=== PATIENT | female | born 1950 | race Caucasian/White ===

== ENCOUNTER → 2023-12-26 | Outpatient (CLI) | payer MEDICARE, BC, SELFPAY ==
[2023-12-26 10:02] LABS: OBS Card Lot # 22004; OBS Performed By LAB; OBS QC OK? Yes
[2023-12-26 13:46] LABS: OBS Developer Lot # 23003; Occult Blood, Stool Negative (Negative); Occult Blood, Stool #2 Negative (Negative); Occult Blood, Stool #3 Negative (Negative)
== END | disposition home or self-care (01) ==
LOC: SLDO 09:55
PROVIDERS: PCP Family Medicine; Referring Provider Family Medicine; Visit Provider Family Medicine
DX: Z12.11 Encounter for screening for malignant neoplasm of colon (principal)
CPT/HCPCS: 82270

== ENCOUNTER → 2024-01-23 | Outpatient (CLI) | payer MEDICARE, BC, SELFPAY ==
--- NOTE | 2024-01-23 08:30 | XR_ITS ---
Examination: Screening digital mammography, bilateral Computer aided detection 3-D breast Tomosynthesis, bilateral Date and time of exam: January 23, 2024 0817 hours Compared to mammograms dating to April 29, 2016 Indication: Screening Technique: Nonmagnified MLO, CC views of the breasts to been obtained, reconstructed from 3-D Tomosynthesis images. R2 computer aided detection program utilized for evaluation of suspicious masses and/or abnormal calcifications. 3-D Tomosynthesis images obtained. Findings: Scattered areas of fibroglandular density. Benign calcifications. 4 mm circumscribed nodule retroareolar region right breast Impression: BI-RADS Category 0: Incomplete: Need additional imaging evaluation 4 mm circumscribed nodule retroareolar region right breast, recommend follow-up spot tomographic views retroareolar region right breast right breast sonography to complete the workup
== END | disposition home or self-care (01) ==
LOC: CDIM 08:08
PROVIDERS: PCP Family Medicine; Referring Provider Family Medicine; Visit Provider Family Medicine
DX: Z12.31 Encounter for screening mammogram for malignant neoplasm of breast (principal); N63.41 Unspecified lump in right breast, subareolar; R92.8 Other abnormal and inconclusive findings on diagnostic imaging of breast
CPT/HCPCS: 77063; 77067

== ENCOUNTER → 2024-02-29 | Outpatient (CLI) | payer MEDICARE, BC, SELFPAY ==
--- NOTE | 2024-02-29 10:17 | XR_ITS ---
Examination: PA lateral chest 2 views TECHNIQUE: Upright PA lateral chest 2 views Exam date and time: February 29, 2024 1044 hours Comparison June 30, 2020 INDICATIONS: Shortness of breath beginning 2 months ago, diagnosis chronic hypertension FINDINGS: Mild prominence left ventricle Mild opacity at the right base No pulmonary edema Prominent osteopenia IMPRESSION: Suspicious for early right base pneumonia
== END | disposition home or self-care (01) ==
LOC: CDIM 10:12
PROVIDERS: PCP Internal Medicine; Referring Provider Internal Medicine; Visit Provider Internal Medicine
DX: R91.8 Other nonspecific abnormal finding of lung field (principal)
CPT/HCPCS: 71046

== ENCOUNTER → 2024-03-02 | Outpatient (CLI) | payer MEDICARE, BC, SELFPAY ==
--- NOTE | 2024-03-02 09:30 | XR_ITS ---
Examination: Breast ultrasound, unilateral, right Date and time of exam: March 02, 2024 0948 hours INDICATIONS: Mammogram January 23, 2024 4 mm nodule retroareolar region right breast Technique: Real-time celestin scale ultrasonographic imaging performed right breast including all 4 quadrants as well as nipple retroareolar and axillary region. Findings: Dilated ducts in the retroareolar region no solid nodules IMPRESSION: BI-RADS Category 2: Benign findings
--- NOTE | 2024-03-02 10:00 | XR_ITS ---
Examination: Diagnostic digital mammography, unilateral, right Computer aided detection 3-D breast Tomosynthesis, unilateral Date and time of exam: March 02, 2024 0955 hours INDICATIONS: Mammogram January 23, 2024 4 mm circumscribed nodule retroareolar region right breast Technique: Nonmagnified MLO, CC views of the right breast have been obtained, reconstructed from 3-D Tomosynthesis images. R2 computer aided detection program utilized for evaluation of suspicious masses and/or abnormal calcifications. 3-D Tomosynthesis images obtained. Findings: Scattered areas of fibroglandular density No suspicious mass is depicted Impression: BI-RADS category 2: Benign findings Return to yearly follow-up mammography
== END | disposition home or self-care (01) ==
PROVIDERS: PCP Family Medicine; Referring Provider Family Medicine; Visit Provider Family Medicine
DX: R92.321 Mammographic fibroglandular density, right breast (principal); R92.8 Other abnormal and inconclusive findings on diagnostic imaging of breast
CPT/HCPCS: 76641; 77061; 77065; G0279

== ENCOUNTER → 2024-05-09 | Outpatient (CLI) | payer MEDICARE, BC, SELFPAY ==
[2024-05-09 08:34] LABS: Basophils % (Auto) 1 % (0-2.5); Eosinophils # (Auto) 0.1 Thou/mm3 (0.0-0.5); Eosinophils % (Auto) 1 % (0-10); Hematocrit 37.6 % (36.0-46.0); Hemoglobin 12.6 g/dL (12.0-16.0); Immature Granulocytes % (Auto) 0 % (0-0); Immature Granulocytes Auto 0.02 Thou/mm3 (0.00-0.00); Lymphocytes # (Auto) 2.3 Thou/mm3 (1.0-4.8); Lymphocytes % (Auto) 30 % (10-50); Mean Corpuscular HGB Conc 33.5 g/dl (31.0-37.0); Mean Corpuscular Hemoglobin 32.2 pg (25.0-35.0); Mean Corpuscular Volume 96 fL (80-100); Monocytes # (Auto) 0.9 Thou/mm3 (0.0-0.8); Monocytes % (Auto) 11 % (0-12); Neutrophils # (Auto) 4.2 Thou/mm3 (1.8-7.7); Neutrophils % (Auto) 56 % (37-80); Nucleated Red Blood Cell % 0 /100 WBC (0); Platelet Count 170 Thou/mm3 (140-440); RDW Standard Deviation 43.9 fL (36.4-46.3); Red Blood Count 3.91 Miln/mm3 (4.00-5.20); White Blood Count 7.4 Thou/mm3 (3.6-11.0)
[2024-05-09 08:36] LABS: Glucose Estimated Average 126 mg/dL (80-131)
[2024-05-09 08:53] LABS: Alanine Aminotransferase 15 U/L (10-49); Albumin/Globulin Ratio 1.6 (1.2-2.2); Alkaline Phosphatase 84 U/L (46-116); Anion Gap 8 (7-16); Aspartate Amino Transferase 16 U/L (0-34); BUN/Creatinine Ratio 20 Ratio (12-20); Bilirubin,Total 0.2 mg/dL (0.3-1.2); Blood Urea Nitrogen 24 mg/dL (9-23); Calcium 9.2 mg/dL (8.3-10.6); Calcium (Corrected) 9.2 mg/dL (8.5-10.1); Carbon Dioxide 29.8 mMol/L (20.0-31.0); Cardiac Risk Estimate 4.9 RATIO (3.7-5.6); Chloride 102 mMol/L (98-107); Cholesterol 246 mg/dL (132-200); Creatinine (Component) 1.2 mg/dL (0.6-1.3); Globulin 2.5 gm/dL (2.3-3.5); Glucose 103 mg/dL (74-106); HDL Cholesterol 50 mg/dL (40-60); LDL Cholesterol,Calculated 150 mg/dL (0-130); Osmolality,Calculated 283 (275-295); Potassium 4.2 mMol/L (3.4-5.1); Sodium 140 mMol/L (136-145); Total Protein 6.5 gm/dL (5.7-8.2); Triglycerides 228 mg/dL (30-150); eGFR 48 See Note
[2024-05-09 08:54] LABS: Creatinine MALB Rnd Ur 105 mg/dL (30-125); Microalbumin Creat Ratio 5 mg/gCrea (<30); Microalbumin, Random Urine 5 mg/L (0-300)
== END | disposition home or self-care (01) ==
LOC: COPL 06:46
PROVIDERS: PCP Family Medicine; Referring Provider Student in an Organized Health Care Education/Training Program; Visit Provider Student in an Organized Health Care Education/Training Program
DX: E11.9 Type 2 diabetes mellitus without complications (principal); E78.00 Pure hypercholesterolemia, unspecified; I10 Essential (primary) hypertension
CPT/HCPCS: 36415; 80053; 80061; 82043; 82570; 83036; 85025

== ENCOUNTER → 2024-08-09 | Outpatient (CLI) | payer MEDICARE, BC, SELFPAY ==
[2024-08-09 09:09] LABS: Basophils # (Auto) 0.1 Thou/mm3 (0.0-0.2); Basophils % (Auto) 1 % (0-2.5); Eosinophils # (Auto) 0.1 Thou/mm3 (0.0-0.5); Eosinophils % (Auto) 1 % (0-10); Hematocrit 38.6 % (36.0-46.0); Immature Granulocytes % (Auto) 0 % (0-0); Immature Granulocytes Auto 0.02 Thou/mm3 (0.00-0.00); Lymphocytes # (Auto) 2.1 Thou/mm3 (1.0-4.8); Lymphocytes % (Auto) 30 % (10-50); Mean Corpuscular HGB Conc 33.7 g/dl (31.0-37.0); Mean Corpuscular Hemoglobin 32.4 pg (25.0-35.0); Mean Corpuscular Volume 96 fL (80-100); Monocytes # (Auto) 0.8 Thou/mm3 (0.0-0.8); Monocytes % (Auto) 12 % (0-12); Neutrophils # (Auto) 3.8 Thou/mm3 (1.8-7.7); Neutrophils % (Auto) 56 % (37-80); Nucleated Red Blood Cell % 0 /100 WBC (0); Platelet Count 180 Thou/mm3 (140-440); RDW Standard Deviation 44.2 fL (36.4-46.3); Red Blood Count 4.01 Miln/mm3 (4.00-5.20); White Blood Count 6.8 Thou/mm3 (3.6-11.0)
[2024-08-09 09:13] LABS: Alanine Aminotransferase 17 U/L (10-49); Albumin, Serum 4.2 gm/dL (3.4-4.8); Alkaline Phosphatase 81 U/L (46-116); Anion Gap 8 (7-16); Aspartate Amino Transferase 20 U/L (0-34); BUN/Creatinine Ratio 16 Ratio (12-20); Bilirubin,Direct 0.1 mg/dL (0.0-0.3); Bilirubin,Total 0.3 mg/dL (0.3-1.2); Blood Urea Nitrogen 22 mg/dL (9-23); Cardiac Risk Estimate 3.4 RATIO (3.7-5.6); Chloride 103 mMol/L (98-107); Cholesterol 178 mg/dL (132-200); Creatinine (Component) 1.4 mg/dL (0.6-1.3); Free T4 (Free Thyroxine) 0.99 ng/dL (0.89-1.76); Glucose 101 mg/dL (74-106); HDL Cholesterol 52 mg/dL (40-60); LDL Cholesterol,Calculated 94 mg/dL (0-130); Osmolality,Calculated 286 (275-295); Potassium 4.8 mMol/L (3.4-5.1); Sodium 142 mMol/L (136-145); Thyroid Stimulating Hormone 2.56 uIU/mL (0.55-4.78); Total Protein 6.9 gm/dL (5.7-8.2); Triglycerides 162 mg/dL (30-150); eGFR 40 See Note
== END | disposition home or self-care (01) ==
PROVIDERS: PCP Internal Medicine Cardiovascular Disease; Referring Provider Internal Medicine Cardiovascular Disease; Visit Provider Internal Medicine Cardiovascular Disease
DX: E78.5 Hyperlipidemia, unspecified (principal); I10 Essential (primary) hypertension; I20.9 Angina pectoris, unspecified
CPT/HCPCS: 36415; 80048; 80061; 80076; 84439; 84443; 85025

== ENCOUNTER → 2024-09-06 | Outpatient (CLI) | payer MEDICARE, BC, SELFPAY ==
[2024-09-06 13:18] LABS: Glucose Estimated Average 108 mg/dL (80-131); Hemoglobin A1C 5.4 % Hgb (4.8-6.0)
[2024-09-06 13:25] LABS: Albumin, Serum 4.2 gm/dL (3.4-4.8); Anion Gap 9 (7-16); BUN/Creatinine Ratio 13 Ratio (12-20); Blood Urea Nitrogen 18 mg/dL (9-23); Calcium 9.5 mg/dL (8.3-10.6); Calcium (Corrected) 9.5 mg/dL (8.5-10.1); Carbon Dioxide 30.9 mMol/L (20.0-31.0); Chloride 103 mMol/L (98-107); Creatinine (Component) 1.4 mg/dL (0.6-1.3); Glucose 130 mg/dL (74-106); Osmolality,Calculated 288 (275-295); Phosphorous 4.0 mg/dL (2.4-5.1); Potassium 4.7 mMol/L (3.4-5.1); Sodium 143 mMol/L (136-145); eGFR 40 See Note
== END | disposition home or self-care (01) ==
LOC: COPL 11:35
PROVIDERS: PCP Family Medicine; Referring Provider Student in an Organized Health Care Education/Training Program; Visit Provider Student in an Organized Health Care Education/Training Program
DX: E11.22 Type 2 diabetes mellitus with diabetic chronic kidney disease (principal); N18.30 Chronic kidney disease, stage 3 unspecified
CPT/HCPCS: 36415; 80069; 83036

== ENCOUNTER → 2024-11-23 | Outpatient (CLI) | payer MEDICARE, BC, SELFPAY ==
[2024-11-23 09:03] LABS: Alanine Aminotransferase 18 U/L (10-49); Albumin, Serum 4.2 gm/dL (3.4-4.8); Albumin/Globulin Ratio 1.8 (1.2-2.2); Alkaline Phosphatase 79 U/L (46-116); Anion Gap 10 (7-16); Aspartate Amino Transferase 22 U/L (0-34); BUN/Creatinine Ratio 11 Ratio (12-20); Bilirubin,Total 0.3 mg/dL (0.3-1.2); Blood Urea Nitrogen 19 mg/dL (9-23); Calcium 9.6 mg/dL (8.3-10.6); Calcium (Corrected) 9.6 mg/dL (8.5-10.1); Carbon Dioxide 30.0 mMol/L (20.0-31.0); Cardiac Risk Estimate 3.0 RATIO (3.7-5.6); Chloride 102 mMol/L (98-107); Cholesterol 157 mg/dL (132-200); Creatinine (Component) 1.7 mg/dL (0.6-1.3); Globulin 2.4 gm/dL (2.3-3.5); Glucose 102 mg/dL (74-106); HDL Cholesterol 53 mg/dL (40-60); LDL Cholesterol,Calculated 76 mg/dL (0-130); Osmolality,Calculated 285 (275-295); Potassium 4.6 mMol/L (3.4-5.1); Sodium 142 mMol/L (136-145); Total Protein 6.6 gm/dL (5.7-8.2); Triglycerides 139 mg/dL (30-150); eGFR 31 See Note
== END | disposition home or self-care (01) ==
LOC: COPL 07:15
PROVIDERS: PCP Student in an Organized Health Care Education/Training Program; Referring Provider Student in an Organized Health Care Education/Training Program; Visit Provider Student in an Organized Health Care Education/Training Program
DX: N18.30 Chronic kidney disease, stage 3 unspecified (principal); E78.00 Pure hypercholesterolemia, unspecified
CPT/HCPCS: 36415; 80053; 80061

== ENCOUNTER → 2024-12-18 | Outpatient (CLI) | payer MEDICARE, BC, SELFPAY ==
[2024-12-18 12:53] LABS: Albumin, Serum 4.5 gm/dL (3.4-4.8); Anion Gap 11 (7-16); BUN/Creatinine Ratio 10 Ratio (12-20); Blood Urea Nitrogen 12 mg/dL (9-23); Calcium 9.1 mg/dL (8.3-10.6); Calcium (Corrected) 9.1 mg/dL (8.5-10.1); Carbon Dioxide 29.0 mMol/L (20.0-31.0); Chloride 104 mMol/L (98-107); Creatinine (Component) 1.2 mg/dL (0.6-1.3); Glucose 90 mg/dL (74-106); Osmolality,Calculated 286 (275-295); Phosphorous 3.7 mg/dL (2.4-5.1); Potassium 4.5 mMol/L (3.4-5.1); Sodium 144 mMol/L (136-145); eGFR 48 See Note
== END | disposition home or self-care (01) ==
LOC: COPL 11:34
PROVIDERS: PCP Student in an Organized Health Care Education/Training Program; Referring Provider Student in an Organized Health Care Education/Training Program; Visit Provider Student in an Organized Health Care Education/Training Program
DX: N18.30 Chronic kidney disease, stage 3 unspecified (principal)
CPT/HCPCS: 36415; 80069

== ENCOUNTER → 2025-01-08 | Outpatient (CLI) | payer MEDICARE, BC, SELFPAY ==
[2025-01-08 12:27] LABS: Albumin, Serum 4.3 gm/dL (3.4-4.8); Anion Gap 6 (7-16); BUN/Creatinine Ratio 13 Ratio (12-20); Blood Urea Nitrogen 15 mg/dL (9-23); Calcium 9.0 mg/dL (8.3-10.6); Calcium (Corrected) 9.0 mg/dL (8.5-10.1); Carbon Dioxide 29.7 mMol/L (20.0-31.0); Chloride 105 mMol/L (98-107); Creatinine (Component) 1.2 mg/dL (0.6-1.3); Glucose 96 mg/dL (74-106); Osmolality,Calculated 282 (275-295); Phosphorous 3.3 mg/dL (2.4-5.1); Potassium 4.5 mMol/L (3.4-5.1); Sodium 141 mMol/L (136-145); eGFR 48 See Note
== END | disposition home or self-care (01) ==
LOC: COPL 11:22
PROVIDERS: PCP Student in an Organized Health Care Education/Training Program; Referring Provider Student in an Organized Health Care Education/Training Program; Visit Provider Student in an Organized Health Care Education/Training Program
DX: N18.30 Chronic kidney disease, stage 3 unspecified (principal)
CPT/HCPCS: 36415; 80069

== ENCOUNTER → 2025-01-15 | Outpatient (CLI) | payer MEDICARE, BC, SELFPAY ==
--- NOTE | 2025-01-15 13:34 | XR_ITS ---
Examination: Retroperitoneal ultrasound, complete Technique: Multiple high resolution grayscale images of the retroperitoneum obtained, including kidneys and bladder. Exam date and time: January 15, 2025, 1344 hours INDICATIONS: Stage III chronic kidney disease on laboratory examination January 08, 2025 FINDINGS: Right kidney 10.3 cm renal cortex 1.1 cm 12 mm cyst Left kidney 11.6 cm renal cortex 0.9 cm Mild renal parenchymal scar formation bilaterally Contracted urinary bladder Incidental note abnormally thickened uterine endometrium 1.8 cm in this postmenopausal individual IMPRESSION: Bilateral renal cortical thinning Mild bilateral renal parenchymal scar formation No hydronephrosis Recommend transvaginal pelvic sonography to evaluate and confirm abnormally thickened uterine endometrial stripe
== END | disposition home or self-care (01) ==
LOC: CDIM 13:26
PROVIDERS: PCP Student in an Organized Health Care Education/Training Program; Referring Provider Student in an Organized Health Care Education/Training Program; Visit Provider Student in an Organized Health Care Education/Training Program
DX: N28.89 Other specified disorders of kidney and ureter (principal); N18.30 Chronic kidney disease, stage 3 unspecified
CPT/HCPCS: 76770

== ENCOUNTER 2025-02-08 14:53 | Emergency (ER) | payer MEDICARE, BC, SELFPAY ==
[2025-02-08 16:12] VITALS: BP 149/80; PULSE 68; RESP 20; TEMP 36.5; O2SAT 95; BMI 36.3
--- NOTE | 2025-02-08 16:22 | XR_ITS ---
Examination: Right elbow 3 views Technique: Elbow AP, oblique, lateral 3 views Exam date and time: February 08, 2025, 1624 hours INDICATIONS: Elbow pain since yesterday, no trauma FINDINGS: Old appearing bone density 7 mm adjacent to the medial humeral condyle Significant elbow effusion No definite acute fracture Ossification of the triceps tendon IMPRESSION: Old appearing 7 mm bone density medial to the humeral condyle, clinical correlation advised Significant elbow effusion No acute fracture, suggest short-term follow-up as clinically warranted
--- NOTE | 2025-02-08 16:23 | PD.EDADULT ---
ED General RME/HPI General Chief complaint: General Adult/Misc Complain Stated complaint: SENT BY PCP TO R/O BLOOD CLOT R ARM Time Seen by Provider: 02/08/25 15:26 Arrival date/time: 02/08/25 14:53 This is a 74-year-old female that comes into the emergency room with complaints of right elbow pain. Patient is denies trauma patient states has been hurting since yesterday since yesterday. Patient reports that it starts below the elbow and radiates to her wrist. Patient describes it as sharp and burning at times. No swelling noted no erythema noted Related Data Home Medications ?Medication ?Instructions ?Recorded ?Confirmed propranolol 20 mg tablet 20 mg PO BID ##0 02/20/11 09/28/21 carbamazepine 200 mg tablet 400 mg PO BID 05/24/20 09/28/21 lisinopril 20 mg tablet 40 mg PO DAILY 07/17/20 09/28/21 metformin 500 mg tablet 500 mg PO DAILY 07/17/20 09/28/21 Held on 09/28/21. Instructions: Resume on 10/01/21. hydrochlorothiazide 12.5 mg capsule 25 mg PO QDAY 07/18/20 09/28/21 galcanezumab-gnlm 120 mg/mL 120 mg subcut QMONTH 09/28/21 09/28/21 subcutaneous syringe (Emgality) loratadine 10 mg tablet 10 mg PO QDAY 09/28/21 09/28/21 Previous Rx's ?Medication ?Instructions ?Recorded acetaminophen 500 mg tablet 1,000 mg (2 x 500 mg) PO Q6H PRN 02/08/25 pain #30 tabs ibuprofen 800 mg tablet 800 mg PO Q6H PRN pain #14 tabs 02/08/25 Allergies Allergy/AdvReac Type Severity Reaction Status Date / Time Sulfa (Sulfonamide Allergy Severe Vomiting Verified 02/08/25 14:56 Antibiotics) latex Allergy Mild Rash Verified 02/08/25 14:56 oxcarbazepine Allergy Mild Itching Verified 02/08/25 14:56 diazepam AdvReac Unknown HYPERSENSITIVITY Verified 02/08/25 14:56 TO EFFECTS Review of Systems Review of Systems Systems Reviewed: All systems reviewed, normal except as documented Past Medical History Past Medical History NEUROLOGIC: Negative Neurological Disorders, Cerebrovascular Accident, Transient Ischemic Attacks (TIA), Dementia, Alzheimer's Disease, Parkinson's Disease, Brain Tumor, Meningitis, Seizures, Epilepsy, Multiple Sclerosis, Cerebral Palsy, Amyotrophic Lateral Sclerosis (ALS/Christine Gehrig's), Guillain-[place] Syndrome, Spina Bifida, Paralysis, Peripheral Neuropathy, Davis's Palsy, Subdural Hematoma, Migraine, Head Trauma, Spinal Cord Injury or Traumatic Brain Injury CARDIAC: Positive Cardiac Disorders, Myocardial Infarction, Hypercholesterolemia, Cellulitis, Hypertension and Varicose Veins; Negative Cardiac Arrhythmia, Atrial Fibrillation, Angina, Heart Murmur, Coronary Artery Disease, Atherosclerotic Heart Disease, Peripheral Vascular Disease, Aneurysm, Congestive Heart Failure, Congenital Heart Disease, Valvular Heart Disease, Rheumatic Fever, Cardiomyopathy, Edema, Pericarditis, Deep Vein Thrombosis or Hypotension RESPIRATORY: Positive Respiratory Disorders (Pneumonia) and Pneumonia; Negative Chronic Obstructive Pulmonary Disease (COPD), Asthma, Bronchitis, Emphysema, Pulmonary Fibrosis, Cystic Fibrosis, Tuberculosis, Pulmonary Embolism, Pulmonary Edema or Sleep Apnea GASTROINTESTINAL: Positive Gastrointestinal Disorders and Obesity; Negative Hepatitis, Cirrhosis, Pancreatitis, Celiac Disease, Gall Bladder Disease, Gastrointestinal Bleed, Esophageal Varices, Brannon's Esophagus, Colitis, Ulcerative Colitis, Diverticulitis, Diverticulosis, Ulcer, Colorectal Cancer, Irritable Bowel, Crohn's Disease, Obstructive Bowel, Hiatal Hernia, Hemorrhoids, Gastroesophageal Reflux Disease or Polyps GENITOURINARY: Negative Genitourinary Disorders, Chronic Kidney Disease, Renal Disease, Kidney Stones, Polycystic Kidney Disease, Neurogenic Bladder, Inguinal Hernia, Dialysis, Prostate Cancer or Benign Prostatic Hyperplasia REPRODUCTIVE: Positive Previous Pregnancies; Negative Breast Cancer, Endometriosis, Genital Herpes, Gonorrhea, Pelvic Inflammatory Disease, Syphilis, Testicular Cancer or Uterine Prolapse MUSCULOSKELETAL: Positive Arthritis (arthritis); Negative Musculoskeletal Disorders, Muscular Dystrophy, Myasthenia Gravis, Marfan's Syndrome, Bone Cancer, Rheumatoid Arthritis, Osteoporosis, Degenerative Disk Disease, Gout, Scoliosis, Carpal Tunnel Syndrome, Fibromyalgia, Fractures, Degenerative Joint Disease, Osteomyelitis or Poliovirus ENT: Positive History of ENT Problems, Cataracts and Ear Infection; Negative Glaucoma, Blind, Retinal Detachment, Macular Degeneration, Deafness, Head Trauma or Eye Prosthesis ENDOCRINE: Positive Endocrine Disorders and Diabetes Mellitus Type 2; Negative Diabetes Mellitus Type 1, Hypoglycemia, Hyampom's Syndrome, [place]'s Disease, Hyperthyroidism, Hypothyroidism, Parathyroid Disease, Pituitary Disease, Systemic Lupus Erythematosus, Syndrome of Inappropriate Antidiuretic Hormone (SIADH), Adrenal Disease or Graves' Disease HEMATOLOGIC: Negative Blood Disorders, Anemia, Leukemia, Hemophilia, Thalassemia, Sickle Cell Disease or Clotting Problems PSYCHO/SOCIAL: Positive Depression and Anxiety; Negative Psychiatric Problems, Schizophrenia, Recreational Drug Use, Bipolar Disorder, Behavior Problems, Self-Mutilation, Attention Deficit Disorder, Attention Deficit Hyperactivity Disorder, Depression, Post Traumatic Stress Disorder or Eating Disorder OTHER HISTORY: Negative Hospitalization, Autoimmune Disease, Down Syndrome, Developmental Delay, Shingles, Falls, Blood Transfusions, Blood Transfusion Reaction, Anesthesia Reactions, Organ Transplant, Chemotherapy, Radiation Therapy, Hyperbaric Therapy, MRSA, VRSA, Vancomycin-Resistant Enterococci, Human Immunodeficiency Virus (HIV), Chicken Pox, Measles, Mumps, Rubella (Tamazight Measles), Pertussis, Clostridium Difficile, Cancer, Breast Cancer, Cervical Cancer, Colorectal Cancer, Lung Cancer, Ovarian Cancer, Prostate Cancer or Testicular Cancer Family History FAMILY HISTORY: Positive Family Cancer (mom) and Family Surgery (sister); Negative Family Anesthesia Reaction Surgical History SURGICAL: Negative Cardiac Surgery, Open Heart Surgery, Coronary Artery Bypass Graft, Valve Replacement, Vascular Surgery, Coronary Stent, Cardiac Catheterization, Pacemaker, Angiogram, Auto Implanted Cardiovert Defib, Carotid Endarterectomy, Endocrine Surgery, Thyroidectomy, Ear Surgery, Tympanostomy Tube, Eye Surgery, Nose Surgery, Oral Surgery, Tonsillectomy, Adenoidectomy, Cochlear Implant, Corneal Transplant, Throat Surgery, Abdominal Surgery, Tracheostomy, Gastric Bypass Surgery, Gastrostomy, Bowel Surgery, Nephrectomy, Bladder Sling, Ureteral Stent, Transurethral Resection, Joint Replacement, of Shoulder Sx, Amputation, Knee Sx, Hip Sx, Open Reduction Internal Fixation, Arthroscopy, of Back Surgery, Neurologic Surgery, Brain Shunt, Mastectomy, Lumpectomy, Hysterectomy, Tubal Ligation, Section, Organ Transplant or ESWL Social History SMOKING STATUS: Former smoker Travel History EBOLA RISK: No Past Medical History Comments PMH COMMENT: NEUROLOGIC: Bilateral trigeminal neuralgia CARDIAC: Positive Cardiac Disorders, Hypercholesterolemia, Hypertension and Varicose Veins; Negative Congestive Heart Failure RESPIRATORY: Positive Pneumonia; Negative Chronic Obstructive Pulmonary Disease (COPD) or Asthma GASTROINTESTINAL: Positive Gastrointestinal Disorders and Obesity GENITOURINARY: Negative Genitourinary Disorders or Renal Disease REPRODUCTIVE: Positive Previous Pregnancies MUSCULOSKELETAL: Negative Musculoskeletal Disorders ENT: Positive Cataracts ENDOCRINE: Positive Endocrine Disorders and Diabetes Mellitus Type 2; Negative Diabetes Mellitus Type 1 HEMATOLOGIC: Negative Sickle Cell Disease Surgical History SURGICAL: Positive Section Social History SMOKING STATUS: Never smoker Travel History EBOLA RISK: No ED Exam Narrative Physical exam: VITAL SIGNS: Reviewed. GENERAL APPEARANCE: Alert and interactive, follows commands, no acute distress HEAD AND FACE: Non-traumatic. ENT: PERRL, conjuctiva pink and clear, eyelid no trauma, Mucous membrane moist. NECK: Supple, nontender, no nuchal rigidity. CHEST: No tenderness, no crepitus, no paradoxical movement, no retractions. LUNGS: breathing even and unlabored HEART: Regular rate, cap refill less than 2 seconds ABDOMEN: Soft, nondistended NEUROLOGICAL: Gross motor function intact sensory function intact, Appropriate for age. MUSCULOSKELETAL: low back nontender, full range of motion, pain with range of motion to area approx 5 cm below elbow no pain around the shoulder area to palpation or to the upper arm. NO pain to elbow, nO pocket of fluid located around elbow No swelling noted no erythema noted EXTREMITIES: No redness no swelling no skin breakdown on bilateral foot and leg. Distal neurovascular status intact bilateral foot SKIN: Color pink, dry Course Quality Measures none Orders Category Date Time Status edy wrap [Splint / Immobilizer] STAT Care 02/08/25 18:20 Completed XR elbow comp RT min 3V Stat Exams 02/08/25 16:22 Completed Acetaminophen Tab [Tylenol ES Tab] Med 02/08/25 16:22 Discontinued 1,000 mg PO X1 ONE Ibuprofen Tab [Motrin Tab] Med 02/08/25 16:22 Discontinued 800 mg PO X1 ONE Vital Signs Vital signs: Vital Signs Temperature 97.7 F 02/08/25 16:12 Pulse Rate 68 02/08/25 16:12 Respiratory Rate 20 02/08/25 16:12 Blood Pressure 149/80 H 02/08/25 16:12 Pulse Oximetry (%) 95 02/08/25 16:12 Oxygen Delivery Method Room Air 02/08/25 16:12 Discharge Plan Plan Patient Disposition: HOME (Self Care) Patient condition on transfer: Stable Prescriptions/Referrals Prescriptions/Med Rec: New ibuprofen 800 mg tablet 800 mg PO Q6H PRN (Reason: pain) Qty: 14 0RF acetaminophen 500 mg tablet 1,000 mg PO Q6H PRN (Reason: pain) Qty: 30 0RF No Action propranolol 20 mg Tablet 20 mg PO BID Qty: 0 metformin 500 mg tablet 500 mg PO DAILY Patient Comments: TAKE 1 TABLET BY MOUTH WITH MEALS DAILY FOR DIABETES lisinopril 20 mg tablet 40 mg PO DAILY Patient Comments: TAKE 1 TABLET BY MOUTH EVERY DAY FOR BLOOD PRESSURE carbamazepine 200 mg Tablet 400 mg PO BID Rx Instructions: am & hs. hydrochlorothiazide 12.5 mg Capsule 25 mg PO QDAY loratadine 10 mg Tablet 10 mg PO QDAY Emgality Syringe 120 mg/mL Syringe 120 mg SUBCUT QMONTH Referrals: No Primary/Family,Physician [Primary Care Provider] - In 1 week Problem List Clinical Impression: Arm pain Patient/Caregiver Discharge Instructions Education Materials: ED RICE Additional Instructions: Instructed patient to ice arm along with elevate. May take NSAIDs and Tylenol for comfort. Patient told to follow-up with primary provider in 1 to 2 days. Come back to the emergency room symptoms change or worsen. Print Language: Malian Stand Alone Forms: [employer] Info., Patient Portal Info Letter MDM Narrative MDM hospital course (for use when minimal MDM required): elbow x ray: FINDINGS: Old appearing bone density 7 mm adjacent to the medial humeral condyle Significant elbow effusion No definite acute fracture Ossification of the triceps tendon IMPRESSION: Old appearing 7 mm bone density medial to the humeral condyle, clinical correlation advised Significant elbow effusion I spoke to patient at length. I cannot appreciate any swelling to patient's right elbow or any erythema. Patient has tenderness approximately 5 cm below the elbow. Patient's elbow and above the elbow or anywhere around the elbow is not tender she does not have a pocket of fluid in those areas. Doubt bursitis. Patient denies any trauma. I did talk to patient about possibly trying to aspirate fluid but I explained to patient that I would not even know where to try to aspirate fluid because nothing appears swollen to me and there is no pocket of fluid anywhere that I can palpate. At this time will not aspirate any fluid. Will see if the rest compression and NSAIDs help patient. I explained to patient at length that if she starts having a fever her arm starts getting red swollen to come back to the emergency room immediately or follow-up with primary provider. Patient verbalized understanding feels comfortable plan of care. Patient already feels better with Tylenol and ibuprofen. Will put patient in Edy wrap. Clinical Information Provided by: patient Medical Records reviewed [facility] Meds/Rx considered, not ordered None Labs/Rad/Tests considered, not ordered None Chronic Illness/Social Conditions which may negatively complicate care or outcome(s)-explain: None or not applicable Imaging Imaging interpretation: see narrative above Medication Administration(s) Medication Administration History Discontinued Medications Acetaminophen (Acetaminophen 500 Mg Tablet) 1,000 mg PO X1 ONE Stop: 02/08/25 16:23 Last Admin: 02/08/25 17:04 Dose: 1,000 mg Documented By: BERNICE Ibuprofen (Ibuprofen Tab 400 Mg Tablet) 800 mg PO X1 ONE Stop: 02/08/25 16:23 Last Admin: 02/08/25 17:04 Dose: 800 mg Documented By: BERNICE
[2025-02-08] MEDS: IBUPROFEN TAB 400 MG TABLET 800 MG PO (17:04)
[2025-02-08] MEDS: ACETAMINOPHEN 500 MG TABLET 1000 MG PO (17:04)
== END 2025-02-08 18:36 | disposition home or self-care (01) ==
PROVIDERS: Emergency Provider Family Medicine
DX: M25.421 Effusion, right elbow (principal)
CPT/HCPCS: 73080; 99283; A4565; A9270